=== PATIENT | female | born 1945 ===

== ENCOUNTER 2016-11-25 08:59 | Outpatient (CLI) | payer MEDICARE, BC ==
[2016-11-25 12:42] LABS: ALT (SGPT) 13 U/L (0-55); AST (SGOT) 12 U/L (5-34); Alkaline Phosphatase 52 U/L (40-150); Anion Gap 17 mmol/L (10-20); BUN (Urea Nitrogen) 22 mg/dL (9.8-20.1); Bilirubin, Total 0.4 mg/dL (0.2-1.2); Calc. Creatinine Clearance 0 mL/min (70-130); Calcium 8.9 mg/dL (7.8-10.44); Carbon Dioxide 26 mmol/L (23-31); Chloride 102 mmol/L (98-107); Estimated GFR-MDRD 42; Globulin 2.7 g/dL (2.4-3.5); LDL Cholesterol, Calculated 91 mg/dL; Protein, Total 6.8 g/dL (5.8-8.1)
== END 2016-11-25 09:00 ==
LOC: NAVSJIPCSP 08:59
PROVIDERS: ATTEND Internal Medicine
DX: Z51.81 Encounter for therapeutic drug level monitoring (principal); Z79.899 Other long term (current) drug therapy
CPT/HCPCS: 36415; 80053; 80061; 84443